=== PATIENT | male | born 1990 | race American Indian/Alaskan Native ===

== ENCOUNTER 2024-10-22 21:48 | Emergency (ER) | payer MEDICAID, SELFPAY ==
[2024-10-22 21:49] VITALS: BP 137/73; PULSE 87; RESP 18; TEMP 37.2; O2SAT 98; BMI 27.4
[2024-10-22 21:56] VITALS: PULSE 72
--- NOTE | 2024-10-22 22:10 | EKG_ITS ---
[facility] Test Date: 2024-10-22 Pat Name: MARCOS BURDEN Department: Room: - Gender: Male [employer] Instructor: : 1990 Requested By: Jayme Lin Order Number: [id number] Reading MD: Jayme Lin Measurements Intervals [place] Rate: 89 P: 66 CT: 145 QRS: 66 QRSD: 82 T: 38 QT: 309 QTc: 376 Interpretive Statements SINUS RHYTHM No previous ECG available for comparison /store/S0/[id number].pdf
--- NOTE | 2024-10-22 22:20 | XR_ITS ---
Examination: CT brain head without contrast. 2-D sagittal coronal reconstructions Date and time of exam:October 22, 2024 1032 hrs. Indications: Headaches beginning 4 years ago more severe the last 5 days CTDI: vol (mGy):52 DLP: (mGycm):1023 Technique: Multiple CT axial sections of the brain have been obtained, 5 mm slice thickness. Contrast has not been administered. 2-D sagittal, coronal reconstructions have been obtained Low dose protocols were performed. One or more of the following dose reduction techniques were used; automated exposure control, adjustment of the mA and/or KV according to patient size, use of iterative reconstruction technique. Findings: No significant ventricular enlargement. Intra-axial or extra-axial hemorrhage density is not seen. No mass effect or midline shift Basal cisterns are not remarkable. Fourth ventricle is midline. Cranial vault intact. Impression: Negative for acute hemorrhage, mass effect or midline shift Acute right maxillary sinusitis
--- NOTE | 2024-10-22 22:20 | PD.EDRME ---
Rapid Medical Screening Exam RME Arrival date/time: 10/22/24 21:48 34 year old male present to Ed for c/o dizziness/weakness. headache ongoing for 4 years I have greeted and performed a focused initial assessment of this patient. A comprehensive ED assessment and evaluation of the patient, analysis of all test results, and completion of the medical decision making process will be conducted by additional ED providers. Chief Complaint: General Adult/Misc Complain Time Seen by Provider: 10/22/24 21:59 Vital signs: Vital Signs Temperature 99.0 F 10/22/24 21:49 Pulse Rate 87 10/22/24 21:49 Respiratory Rate 18 10/22/24 21:49 Blood Pressure 137/73 H 10/22/24 21:49 Pulse Oximetry (%) 98 10/22/24 21:49 Oxygen Delivery Method Room Air 10/22/24 21:49
[2024-10-22 22:59] LABS: Basophils % (Auto) 0 % (0-2.5); Eosinophils % (Auto) 0 % (0-10); Hemoglobin 14.9 g/dL (13.5-16.0); Immature Granulocytes % (Auto) 0 % (0-0); Immature Granulocytes Auto 0.02 Thou/mm3 (0.00-0.00); Lymphocytes # (Auto) 0.8 Thou/mm3 (1.0-4.8); Lymphocytes % (Auto) 8 % (10-50); Mean Corpuscular HGB Conc 35.5 g/dl (31.0-37.0); Mean Corpuscular Hemoglobin 30.6 pg (25.0-35.0); Mean Corpuscular Volume 86 fL (80-100); Monocytes # (Auto) 1.4 Thou/mm3 (0.0-0.8); Monocytes % (Auto) 14 % (0-12); Neutrophils % (Auto) 78 % (37-80); Nucleated Red Blood Cell % 0 /100 WBC (0); Platelet Count 235 Thou/mm3 (140-440); RDW Standard Deviation 38.9 fL (35.1-43.9); Red Blood Count 4.87 Miln/mm3 (4.50-5.90); White Blood Count 10.3 Thou/mm3 (3.8-10.6)
[2024-10-22 23:18] LABS: Alanine Aminotransferase 34 U/L (10-49); Albumin, Serum 4.7 gm/dL (3.5-5.0); Albumin/Globulin Ratio 1.6 (1.2-2.2); Alkaline Phosphatase 91 U/L (46-116); Anion Gap 8 (7-16); Aspartate Amino Transferase 35 U/L (0-34); BUN/Creatinine Ratio 16 Ratio (12-20); Bilirubin,Total 0.4 mg/dL (0.3-1.2); Blood Urea Nitrogen 18 mg/dL (9-23); Calcium 10.5 mg/dL (8.3-10.6); Calcium (Corrected) 10.5 mg/dL (8.5-10.1); Chloride 98 mMol/L (98-107); Creatinine (Component) 1.1 mg/dL (0.6-1.3); Estimated Creatinine Clearance 94.3 mL/min (>60); Globulin 2.9 gm/dL (2.3-3.5); Glucose 106 mg/dL (74-106); Osmolality,Calculated 268 (275-295); Potassium 3.7 mMol/L (3.4-5.1); Sodium 133 mMol/L (136-145); Total Protein 7.6 gm/dL (5.7-8.2); Troponin I < 0.020 ng/mL (0.0-0.045); eGFR > 60 See Note
[2024-10-22 23:43] LABS: Strep A Rapid Negative (Negative)
--- NOTE | 2024-10-23 00:31 | EDNOTE_ITS ---
<Statement entered by Maddi Gomes MD - 10/23/24 05:12> As co-signing physician, I was present and available for consult prn. I concur with the plan and care as documented by the midlevel provider. ED General RME/HPI General Chief complaint: General Adult/Misc Complain Stated complaint: WEAKNESS DIZZINESS Time Seen by Provider: 10/22/24 21:59 Arrival date/time: 10/22/24 21:48 34 year old male present to emergency room via EMS with c/o of weakness and dizziness for a few days. SEVERITY: Symptoms are described as being severe with limitations on activities of daily living CONTEXT: The patient is unable to identify any inciting events. DURATION/TIMING: The symptoms started approximately 2 days ago and have been constant since and have been progressive getting worse. ASSOCIATED SYMPTOMS: The patient is unable to identify any other associated symptoms. MODIFYING FACTORS: The patient is unable to identify any alleviating or aggravating symptoms. PERTINENT ROS: no fevers, no cough, no pleuritic pain, no ripping or tearing sensations, denies any lower extremity edema and no unilateral swelling, no chest pain/shortness of breath no nausea,vomiting, diarrhea, no rash no loc/syncope episode no abd/back pain no dsyuria,urgency,frequency REVIEW OF SYSTEMS: See History of Present Illness - with the exception of those mentioned in the history of present illness, all other systems reviewed and reported as negative GENERAL: In general the patient is awake, interactive, in an emergency department gurney. HEAD/EYES/EARS/NOSE/THROAT: normo-cephalic, atraumatic, mucus membranes are moist, anicteric, palpebral conjunctiva is pink, trachea is midline. CARDIOVASCULAR: regular rate and regular rhythm, no murmurs, heart sounds are not distant, strong pulses in all four extremities that are equal and symmetric bilateral upper and lower extremities, normal capillary refill. CHEST/PULMONARY: normal chest rise and fall, good air movement, clear to auscultation bilaterally, normal inspiratory to expiratory ratios without evidence of respiratory distress. NECK: No midline/Paraspinal tenderness, no step off ROM/Strenght intact No Kernig and bruzinski sign. No trauma ABDOMEN: soft, not tender, no masses appreciated BACK: normal range of motion without pain. NEUROLOGICAL: cranio-facial features are symmetric, moves all four extremities equally without obvious limitations or weakness. EXTREMITY: no tenderness to palpation over the long bones or large joints of the bilateral upper and lower extremities, no joint swelling, no joint erythema, no signs of trauma, no unilateral leg swelling and no peripheral edema. SKIN: warm, dry, well-perfused, no jaundice, no rash, no telangiectasias or petechia. PSYCH: calm, cooperative, no evidence of psychosis or agitation RME / HPI RME / HPI narrative: 10/22/24 21:48 34 year old male present to Ed for c/o dizziness/weakness. headache ongoing for 4 years I have greeted and performed a focused initial assessment of this patient. A comprehensive ED assessment and evaluation of the patient, analysis of all test results, and completion of the medical decision making process will be conducted by additional ED providers. Related Data Previous Rx's ?Medication ?Instructions ?Recorded amoxicillin 875 mg-potassium 1 tab PO Q12H #14 tabs 10/23/24 clavulanate 125 mg tablet Allergies Allergy/AdvReac Type Severity Reaction Status Date / Time No Known Allergies Allergy Unknown Uncoded 01/18/09 13:55 Course Course Course Narrative: Patient presenting with influenza like symptoms.? Obtained influenza A/B screen, which revealed positive influenza.? The following were considered in the patient's differential diagnosis but was not deemed to be consistent with patient's history of present illness and/or physical examination; meningitis, pharyngitis, otitis media, pneumonia, urinary tract infection, peritonsillar abscess, retropharyngeal abscess.? As patient does not present with any signs/symptoms of pneumonia or other complications, deferred CXR or further labwork at this time. Educated patient on diagnosis and natural course of influenza.? Supportive care and preventive measures were discussed.? Continue fluid hydration. Follow up with primary physician in 3-5 days if symptoms continue or new problems arise. Return if having persistent high fever, altered mental status, shortness of breath, uncontrolled vomiting, or other concerns.? ? Plan:? Prescribed augmentin Advised patient on support therapies, including rest, advancement of fluids as tolerated, thorough handwashing w/ soap and H2O, taking OTC ibuprofen or acetaminophen as directed, OTC expectorant/antitussive/decongestants as directed. Advised patient to refrain from visiting work, school, or daycares or visiting women, elderly, or those w/ chronic illnesses. Advised patient to return with new or worsening symptoms. Quality Measures none Orders Category Date Time Status Bedside COVID-19 Antigen Test NOW Care 10/22/24 22:10 Completed Bedside Influenza A&B Antigen Test NOW Care 10/22/24 22:11 Completed EKG (ED ONLY) *Do not use* NOW Care 10/22/24 22:10 Completed Fingerstick [Bedside Blood Glucose] NOW Care 10/22/24 22:[address] head/brain wo con Stat Exams 10/22/24 22:20 Completed EKG (ED Only) Stat Exams 10/22/24 22:10 Draft CBC Stat Lab 10/22/24 22:17 Completed CMP [Comprehensive Metabolic Panel] Stat Lab 10/22/24 22:17 Completed Strep A Rapid Stat Lab 10/22/24 22:45 Completed Troponin I Stat Lab 10/22/24 22:17 Completed Vital Signs Vital signs: Vital Signs Temperature 99.0 F 10/22/24 21:49 Pulse Rate 87 10/22/24 21:49 Respiratory Rate 18 10/22/24 21:49 Blood Pressure 137/73 H 10/22/24 21:49 Pulse Oximetry (%) 98 10/22/24 21:49 Oxygen Delivery Method Room Air 10/22/24 21:49 MDM Patient data External records reviewed:: EMS form and None Clinical information provided by:: patient Social determinants that could affect healthcare access:: none Patient has the following chronic illnesses:: none How is presenting disease/condition affected by chronic disease/condition?: no chronic disease Evaluation data The following diagnostics were reviewed and interpreted by me:: lab results, radiology exam(s) and EKG tracing(s) Lab and/or radiology exams considered but not ordered:: none Interpretation Summary: cbc/cmp/trop negative covid/strep negative + flu CT: No significant ventricular enlargement. Intra-axial or extra-axial hemorrhage density is not seen. No mass effect or midline shift Basal cisterns are not remarkable. Fourth ventricle is midline. Cranial vault intact. Impression: Negative for acute hemorrhage, mass effect or midline shift Acute right maxillary sinusitis Medications Medications considered but not ordered:: none Medication administrations:: none Consultations Consultation(s) initiated? (list below): No Diagnosis Differential Diagnosis ED Complaint MDM: URI, flu/strep/covid, sinusitis , dehydration, kidney failure, anemia Most likely diagnosis given after review of the tests above:: sinusitis, flu Admission Indicated Admission indicated?: not indicated Explain why admission is indicated or not indicated:: no indicated Admission Request Was there a request for admission?: No Disposition Plan Disposition Plan: Discharge Discharge Attestation Discharge Attestation: The patient and all family members were given an opportunity to ask questions and understood the discharge instructions. Discharge instructions specifically effects, indications for sooner follow up or return to the emergency department, and the expected course of current diagnosis. Patient condition: Stable Medical Decision Making Differential Diagnosis Differential Diagnosis: URI, flu/strep/covid, sinusitis , dehydration, kidney failure, anemia Lab Data 10/22/24 22:17 10/22/24 22:17 Labs: Lab Results 10/22/24 10/22/24 Range/Units 22:17 22:45 WBC 10.3 (3.8-10.6) Thou/mm3 RBC 4.87 (4.50-5.90) Miln/mm3 Hgb 14.9 (13.5-16.0) g/dL Hct 42.0 (41.0-53.0) % MCV 86 (80-100) fL MCH 30.6 (25.0-35.0) pg MCHC 35.5 (31.0-37.0) g/dl RDW Std Deviation 38.9 (35.1-43.9) fL Plt Count 235 (140-440) Thou/mm3 Neut % (Auto) 78 (37-80) % Lymph % (Auto) 8 L (10-50) % [place] % (Auto) 14 H (0-12) % Eos % (Auto) 0 (0-10) % Baso % (Auto) 0 (0-2.5) % Neut # (Auto) 8.0 H (1.8-7.7) Thou/mm3 Lymph # (Auto) 0.8 L (1.0-4.8) Thou/mm3 [place] # (Auto) 1.4 H (0.0-0.8) Thou/mm3 Eos # (Auto) 0.0 (0.0-0.5) Thou/mm3 Baso # (Auto) 0.0 (0.0-0.2) Thou/mm3 Immature Gran # (Auto) 0.02 H (0.00-0.00) Thou/mm3 Absolute Nucleated RBC 0.00 (0.00-0.00) Thou/mm3 Immature Gran % 0 (0-0) % Nucleated RBC % 0 (0) /100 WBC Sodium 133 L (136-145) mMol/L Potassium 3.7 (3.4-5.1) mMol/L Chloride 98 (98-107) mMol/L Carbon Dioxide 27.0 (20.0-31.0) mMol/L Anion Gap 8 (7-16) BUN 18 (9-23) mg/dL Creatinine 1.1 (0.6-1.3) mg/dL Estim Creat Clear Calc 94.3 (>60) mL/min eGFR > 60 (60 - ) See Note BUN/Creatinine Ratio 16 (12-20) Ratio Glucose 106 (74-106) mg/dL Calculated Osmolality 268 L (275-295) Calcium 10.5 (8.3-10.6) mg/dL Corrected Calcium 10.5 H (8.5-10.1) mg/dL Total Bilirubin 0.4 (0.3-1.2) mg/dL AST 35 H (0-34) U/L ALT 34 (10-49) U/L Alkaline Phosphatase 91 (46-116) U/L Troponin I < 0.020 (0.0-0.045) ng/mL Total Protein 7.6 (5.7-8.2) gm/dL Albumin 4.7 (3.5-5.0) gm/dL Globulin 2.9 (2.3-3.5) gm/dL Albumin/Globulin Ratio 1.6 (1.2-2.2) Group A Strep Rapid Negative (Negative) Discharge Plan Plan Patient Disposition: HOME (Self Care) Health Concerns: Follow with PMD as directed Take tylenol or motrin as need Return to ED if sx worsen Prescriptions/Referrals Prescriptions/Med Rec: New amoxicillin-pot clavulanate 875-125 mg tablet 1 tab PO Q12H Qty: 14 0RF Problem List Clinical Impression: Influenza, Sinusitis Patient/Caregiver Discharge Instructions Education Materials: Preventing Sinusitis, ED Influenza (Adult) Print Language: Kazakh Stand Alone Forms: Brittany Award Info., Patient Portal Info Letter
[2024-10-23 01:37] VITALS: RESP 18
== END 2024-10-23 01:39 | disposition home or self-care (01) ==
LOC: SERX 10-23 01:02
PROVIDERS: Physician Assistant; Emergency Provider Emergency Medicine
DX: J11.1 Influenza due to unidentified influenza virus with other respiratory manifestations (principal); J01.00 Acute maxillary sinusitis, unspecified
CPT/HCPCS: 36415; 70450; 80053; 84484; 85025; 87400; 87651; 87811; 93005; 99284